=== PATIENT | male | born 1945 | race Caucasian/White ===

== ENCOUNTER 2017-01-04 11:26 | Inpatient (IN) ==
--- NOTE | 2017-01-04 11:34 | Emergency Department Note ---
Disposition Clinical Impression: Uncontrolled diabetes mellitus, Frail elderly, Weakness, Atrial fibrillation, CAROLYN (acute kidney injury), Dehydration, History of Coumadin therapy, Elevated troponin Disposition: Admitted As Inpatient General Adult HPI - General Chief complaint: ED General Medical Stated complaint: weakness Time Seen by Provider: 01/04/17 11:34 Source: patient, family Limitations: no limitations - History of Present Illness HPI Narrative: 71-year-old male reports emergency department with concerns for generalized weakness. He has been feeling weak for about 7 days. He did not want to come to the hospital but his female companions encouraged him to come in today. The patient denies syncope. There is no history of chest pain or shortness of breath. He has had a slight cough and a mild headache. No neck stiffness rash or fever. No leg swelling or pain or coughing up blood. There is no history of acute back pain. No abdominal pain. No bloody stools. The patient states he has a history of diabetes but was taken off his medication recently because his sugar had normalized. The patient used to take diabetic medicine by mouth. He has no history of insulin requirement. The patient is anticoagulated, he has a history of atrial fibrillation. There is no history of bleeding of any sort. No weakness or numbness of the arms or legs, no unilateral arm or leg weakness. No slurred speech or confusion. The patient feels generally weak and has no other acute complaints. Pain Scale: 0 - Related Data Home Medications Medication Instructions Recorded Confirmed Aspirin 81 mg PO DAILY 03/07/15 01/04/17 Clopidogrel [Plavix] 75 mg PO DAILY 03/07/15 01/04/17 GlipiZIDE [Glucotrol] 5 mg PO BID 03/07/15 01/04/17 Losartan/Hydrochlorothiazide 1 tab PO DAILY 03/07/15 01/04/17 [Hyzaar 100-25 Tablet] Metoprolol [Lopressor] 50 mg PO BID 03/07/15 01/04/17 Potassium Chloride 20 meq PO QAM 03/07/15 01/04/17 Terazosin [Hytrin] 5 mg PO HS 03/07/15 01/04/17 amLODIPine [Norvasc] 5 mg PO DAILY 03/07/15 01/04/17 Allopurinol [Zyloprim 300 MG] 300 mg PO DAILY 01/04/17 01/04/17 Digoxin [Lanoxin] 0.125 mg PO DAILY 01/04/17 01/04/17 Pravastatin Sodium [Pravachol] 40 mg PO HS 01/04/17 01/04/17 Warfarin [Coumadin] 2.5 mg PO MOFR 01/04/17 01/04/17 Warfarin [Coumadin] 5 mg PO SUTUWETHSA 01/04/17 01/04/17 Allergies Allergy/AdvReac Type Severity Reaction Status Date / Time No Known Allergies Allergy Verified 01/04/17 14:57 All systems ED: reviewed and negative except as stated. Past Medical History - Past Medical History Medical history: Reports: diabetes, other Psychiatric history: Reports: no psych history - Social History Smoking Status: Former smoker Smokeless Tobacco Status: No Alcohol use: Reports: none Drug use: Reports: none Physical Exam - General Limitations: no limitations General appearance: alert, in no apparent distress - Head Head exam: atraumatic, normocephalic, normal inspection - Eye Eye exam: Present: normal appearance, PERRL, EOMI. Absent: scleral icterus, conjunctival injection, miosis, mydriasis - ENT ENT exam: normal exam, normal oropharynx, mucous membranes moist, TM's normal bilaterally, normal external ear exam - Neck Neck exam: Present: normal inspection, full ROM, trachea midline. Absent: meningismus - Chest Chest inspection: Present: symmetric chest wall rise. Absent: tenderness - Respiratory Respiratory exam: Present: normal lung sounds bilaterally. Absent: respiratory distress, wheezes, stridor, accessory muscle use, prolonged expiratory phase - Cardiovascular Cardiovascular exam: Present: irregular rhythm - Abdominal Exam Abdominal exam: Present: soft, Non-Tender, normal bowel sounds. Absent: tenderness, distention, guarding, rebound, rigidity, pulsatile mass - Extremities Exam Extremities exam: Present: normal inspection, full ROM, normal capillary refill. Absent: tenderness, pedal edema, joint swelling, calf tenderness - Expanded Lower Extremity Exam Lower leg exam: Absent: Homans' sign Neurovascular/Tendon exam: Present: normal capillary refill. Absent: pulse deficit, motor deficit, sensory deficit, tendon deficit, extremity cold to touch , pallor - Back Exam Back exam: Present: normal inspection, full ROM. Absent: tenderness, CVA tenderness (R), CVA tenderness (L), vertebral tenderness - Neurological Exam Neurological exam: Present: alert, oriented X3, CN II-XII intact. Absent: motor sensory deficit - Psychiatric Psychiatric exam: Present: normal affect, normal mood - Skin Skin exam: Present: warm, dry, intact, normal color. Absent: rash, cyanosis, diaphoresis, erythema, pallor, mottled Course - Reevaluation(s) Reevaluation #1: Glucose recheck 512 Vital Signs Temperature 97.8 F 01/04/17 11:31 Pulse Rate 74 01/04/17 11:31 Respiratory Rate 18 01/04/17 11:31 Blood Pressure 120/73 01/04/17 11:31 O2 Sat by Pulse Oximetry 97 01/04/17 11:31 Temperature 97.8 F 01/04/17 11:31 Pulse Rate 73 01/04/17 13:32 Respiratory Rate 16 01/04/17 13:32 Blood Pressure 125/82 01/04/17 13:32 O2 Sat by Pulse Oximetry 95 01/04/17 13:32 Oxygen Delivery Oxygen Delivery Room Air Medical Decision Making - MDM Narrative Medical decision making narrative: The patient has been generally weak, the family noticed that he was not acting himself and thought he should come to the ED so he was brought in. The patient has recently discontinued his diabetic medication. His blood sugar is significantly elevated at 700 range, he appears to have an element of dehydration and acute kidney injury. There is no evidence of acute neurologic defect via radiographic studies and clinical exam. He is not a spearing to chest pain but does have a history of atrial fibrillation and is on Coumadin. His troponin is slightly elevated. Aspirin is given. 2 L of IV fluid were given 500 mL maintenance, 10 units of insulin subcutaneous that an insulin drip were started. No evidence of ness infection. He does have an elevated lactate probably metabolic in origin versus infectious. His urine does not show ketones. Blood cultures were sent. I discussed the case with the hospitalist on-call who has accepted the patient to their care. The patient is currently stable pending admission. - Lab Data Lab results reviewed: Yes I reviewed the patient's lab results. Result diagrams: 01/04/17 11:55 01/04/17 11:55 Lab Results 01/04/17 01/04/17 01/04/17 Range/Units 11:55 11:55 11:55 WBC 8.9 (4.3-11.1) K/mcL RBC 5.20 (4.19-5.50) M/mcL Hgb 15.1 (12.9-16.9) g/dL Hct 45.0 (37.5-50.1) % MCV 86.5 (83.0-100.0) fL MCH 29.0 (28.0-33.3) pg MCHC 33.6 (31.6-35.5) g/dL RDW 14.0 (11.5-14.5) % Plt Count 188 (140-400) K/mcL MPV 11.0 (9.4-12.4) fL Immature Gran % 1.1 (0-4) % Seg Neutrophils % 74.5 % Lymphocytes % 16.0 % Monocytes % 5.5 % Eosinophils % 2.2 % Basophils % 0.7 % Neutrophils # 6.6 (1.6-8.9) K/mcL Lymphocytes # 1.4 (0.6-4.6) K/mcL Monocytes # 0.5 (0.0-1.3) K/mcL Eosinophils # 0.2 (0.0-0.6) K/mcL Basophils # 0.1 (0.0-0.2) K/mcL PT 28.0 H (9.4-12.1) Seconds INR 2.5 Sodium 126 L (136-145) mEq/L Potassium 4.7 H (3.5-4.5) mEq/L Chloride 90 L (98-109) mEq/L Carbon Dioxide 22 (19-29) mEq/L BUN 59 H (8-26) mg/dL Creatinine 2.64 H (0.72-1.25) mg/dL Est GFR ( Amer) 29 L (> 60) Est GFR (Non-Af Amer) 24 L (> 60) BUN/Creatinine Ratio 22 (6-26) Glucose 742 H* (70-99) mg/dL Calculated Osmolality 314 H (280-300) Lactic Acid (0.5-2.2) mmol/L Calcium 10.2 (8.6-10.8) mg/dL Phosphorus 4.3 (2.3-4.7) mg/dL Magnesium 2.2 (1.6-2.6) mg/dL Troponin I (0-0.03) ng/mL C-Reactive Protein (Less than 5) mg/L Urine Color (Yellow) Urine Clarity (Clear) Urine pH (5.0-8.0) pH Units Ur Specific [place] (1.010-1.025) Urine Protein (Neg-Trace) mg/dL Urine Glucose (UA) (Normal) mg/dL Urine Ketones (Negative) mg/dL Urine Blood (Negative) Urine Nitrite (Negative) Urine Bilirubin (Negative) Urine Urobilinogen (Normal) mg/dL Ur Leukocyte Esterase (Negative) Ur Culture Indicated? (NO) 01/04/17 01/04/17 01/04/17 Range/Units 11:55 11:55 11:55 WBC (4.3-11.1) K/mcL RBC (4.19-5.50) M/mcL Hgb (12.9-16.9) g/dL Hct (37.5-50.1) % MCV (83.0-100.0) fL MCH (28.0-33.3) pg MCHC (31.6-35.5) g/dL RDW (11.5-14.5) % Plt Count (140-400) K/mcL MPV (9.4-12.4) fL Immature Gran % (0-4) % Seg Neutrophils % % Lymphocytes % % Monocytes % % Eosinophils % % Basophils % % Neutrophils # (1.6-8.9) K/mcL Lymphocytes # (0.6-4.6) K/mcL Monocytes # (0.0-1.3) K/mcL Eosinophils # (0.0-0.6) K/mcL Basophils # (0.0-0.2) K/mcL PT (9.4-12.1) Seconds INR Sodium (136-145) mEq/L Potassium (3.5-4.5) mEq/L Chloride (98-109) mEq/L Carbon Dioxide (19-29) mEq/L BUN (8-26) mg/dL Creatinine (0.72-1.25) mg/dL Est GFR ( Amer) (> 60) Est GFR (Non-Af Amer) (> 60) BUN/Creatinine Ratio (6-26) Glucose (70-99) mg/dL Calculated Osmolality (280-300) Lactic Acid 3.0 H (0.5-2.2) mmol/L Calcium (8.6-10.8) mg/dL Phosphorus (2.3-4.7) mg/dL Magnesium (1.6-2.6) mg/dL Troponin I 0.04 H* (0-0.03) ng/mL C-Reactive Protein 8 H (Less than 5) mg/L Urine Color (Yellow) Urine Clarity (Clear) Urine pH (5.0-8.0) pH Units Ur Specific [place] (1.010-1.025) Urine Protein (Neg-Trace) mg/dL Urine Glucose (UA) (Normal) mg/dL Urine Ketones (Negative) mg/dL Urine Blood (Negative) Urine Nitrite (Negative) Urine Bilirubin (Negative) Urine Urobilinogen (Normal) mg/dL Ur Leukocyte Esterase (Negative) Ur Culture Indicated? (NO) 01/04/17 Range/Units 12:07 WBC (4.3-11.1) K/mcL RBC (4.19-5.50) M/mcL Hgb (12.9-16.9) g/dL Hct (37.5-50.1) % MCV (83.0-100.0) fL MCH (28.0-33.3) pg MCHC (31.6-35.5) g/dL RDW (11.5-14.5) % Plt Count (140-400) K/mcL MPV (9.4-12.4) fL Immature Gran % (0-4) % Seg Neutrophils % % Lymphocytes % % Monocytes % % Eosinophils % % Basophils % % Neutrophils # (1.6-8.9) K/mcL Lymphocytes # (0.6-4.6) K/mcL Monocytes # (0.0-1.3) K/mcL Eosinophils # (0.0-0.6) K/mcL Basophils # (0.0-0.2) K/mcL PT (9.4-12.1) Seconds INR Sodium (136-145) mEq/L Potassium (3.5-4.5) mEq/L Chloride (98-109) mEq/L Carbon Dioxide (19-29) mEq/L BUN (8-26) mg/dL Creatinine (0.72-1.25) mg/dL Est GFR ( Amer) (> 60) Est GFR (Non-Af Amer) (> 60) BUN/Creatinine Ratio (6-26) Glucose (70-99) mg/dL Calculated Osmolality (280-300) Lactic Acid (0.5-2.2) mmol/L Calcium (8.6-10.8) mg/dL Phosphorus (2.3-4.7) mg/dL Magnesium (1.6-2.6) mg/dL Troponin I (0-0.03) ng/mL C-Reactive Protein (Less than 5) mg/L Urine Color Yellow (Yellow) Urine Clarity Clear (Clear) Urine pH 5.5 (5.0-8.0) pH Units Ur Specific [place] > 1.030 H (1.010-1.025) Urine Protein Negative (Neg-Trace) mg/dL Urine Glucose (UA) >=1000 H (Normal) mg/dL Urine Ketones Negative (Negative) mg/dL Urine Blood Negative (Negative) Urine Nitrite Negative (Negative) Urine Bilirubin Negative (Negative) Urine Urobilinogen Normal (Normal) mg/dL Ur Leukocyte Esterase Negative (Negative) Ur Culture Indicated? NO (NO) - Radiology Data Radiology results reviewed: Yes I reviewed the patient's radiology results.
[2017-01-04 12:06] LABS: Basophils # 0.1 K/mcL (0.0-0.2); Basophils % 0.7 %; Eosinophils # 0.2 K/mcL (0.0-0.6); Eosinophils % 2.2 %; Hemoglobin 15.1 g/dL (12.9-16.9); Immature Granulocytes % 1.1 % (0-4); Lymphocytes # 1.4 K/mcL (0.6-4.6); Mean Corpuscular HGB Conc 33.6 g/dL (31.6-35.5); Mean Corpuscular Volume 86.5 fL (83.0-100.0); Monocytes # 0.5 K/mcL (0.0-1.3); Monocytes % 5.5 %; Neutrophils # 6.6 K/mcL (1.6-8.9); Platelet Count 188 K/mcL (140-400); Segmented Neutrophils % 74.5 %
[2017-01-04 12:11] LABS: INR 2.5
[2017-01-04 12:19] LABS: Bilirubin,Urine Negative (Negative); Blood,Urine Negative (Negative); Clarity,Urine Clear (Clear); Color,Urine Yellow (Yellow); Glucose,Urine (UA) >=1000 mg/dL (Normal); Ketones,Urine Negative (Negative); Leukocyte Esterase,Urine Negative (Negative); Nitrite,Urine Negative (Negative); PH,Urine 5.5 pH Units (5.0-8.0); Protein,Urine Negative (Neg-Trace); Specific Gravity,Urine > 1.030 (1.010-1.025); Urobilinogen,Urine Normal (Normal)
[2017-01-04 12:20] LABS: Calcium 10.2 mg/dL (8.6-10.8); Magnesium 2.2 mg/dL (1.6-2.6); Phosphorous 4.3 mg/dL (2.3-4.7); Potassium 4.7 mEq/L (3.5-4.5)
[2017-01-04] MEDS ORDERED: 0.9 % Sodium Chloride 1,000 ML IVC ONE (12:31)
[2017-01-04] MEDS ORDERED: Insulin Regular, Human 100 UNIT/ML SQ ONE (12:39)
[2017-01-04] MEDS ORDERED: Aspirin 325 MG TABLET PO ONE (12:45)
[2017-01-04] MEDS: 0.9 % Sodium Chloride 1,000 ML IVC SCH ×8 (13:27→21:58)
[2017-01-04] MEDS ORDERED: Insulin Human Regular 100 UNIT in 0.9 % Sodium Chloride 100 ML IVC SCH ×3 (15:45→19:00)
[2017-01-04 17:52] LABS: VBG HCO3 23.7 mEq/L (21-27); VBG PH 7.37 pH Units (7.32-7.42)
[2017-01-04] MEDS ORDERED: Warfarin perPT PO PRN (18:00)
[2017-01-04 18:04] LABS: Calcium 9.3 mg/dL (8.6-10.8); Potassium 4.2 mEq/L (3.5-4.5)
--- NOTE | 2017-01-04 18:24 | Internal Med History&Physical ---
Date of Encounter: 01/04/17 Time of Encounter: 18:16 Assessment and Plan (1) Hyperglycemic hyperosmolar nonketotic coma Current visit: Yes Status: Acute Patient appeared more weak and lethargic to his daughter, his blood glucose was 742 on presentation. His serum osmolality was 314 on presentation. Altogether this supports the diagnosis of hyperglycemic hyperosmolar nonketotic coma. We will treat him with insulin drip per protocol. Check blood glucose every 1 hour. Replete fluids and electrolytes. Fall precaution. High risk for delirium due to profound metabolic abnormalities. We will start a diabetic diet. We will consult clinical unit educator. He has type 2 diabetes and the plan is to discharge him home on oral antidiabetic medication. (2) Anticoagulated on Coumadin Current visit: Yes Status: Acute Continue anticoagulation with warfarin. (3) Chronic heart failure Current visit: Yes Status: Acute There is no echocardiogram in our records. It is unclear if he has systolic or diastolic dysfunction or both. At this time it appears to be compensated as the patient is dehydrated. We will monitor her clinically closely while providing gentle IV fluid hydration. Will obtain echocardiogram. Qualifiers: Heart failure type: unspecified heart failure type Qualified Code(s): I50.9 - Heart failure, unspecified (4) Chronic atrial fibrillation Current visit: Yes Status: Acute Continue rate control with metoprolol. (5) CAROLYN (acute kidney injury) Current visit: Yes Status: Acute Hold lisinopril and I HCTZ. Avoid nephrotoxins. We will provide IV fluids. Monitor BUN and creatinine. He appears to have chronic kidney disease as his creatinine and September 2015 was 1.52. (6) Dehydration Current visit: Yes Status: Acute IV fluid hydration. Encourage oral fluids. Monitor hemodynamically for fluid overload given the patient's history of chronic heart failure. (7) DVT prophylaxis Current visit: Yes Status: Acute He is fully anticoagulated on Coumadin. Internal Medicine - H&P: HPI Chief complaint: Generalized weakness Admitted From: Emergency Dept Plans for Post Hospital Care: Home History of present illness: Mr. Funk is a 71 year old male with past medical history significant for coronary artery disease status post stent placement, chronic atrial fibrillation and diabetes who presented to the hospital for evaluation of generalized weakness. He states that he is to take oral medications for diabetes but a few months ago his primary care physician took him off that because he says that his glucose was well-controlled. For the last 1 week he had progressive generalized weakness associated with increased thirst and increased urination. Denies fevers chills nausea vomiting diarrhea. Does report decreased appetite. Her course has been progressive, denies any aggravating or alleviating factors. A 10 point review of systems was positive for leg swelling, dyspnea on exertion secondary to heart failure. Otherwise negative. Family history was negative for premature coronary artery disease in both parents. His parents lived well into their 70s. Past Med Surg Social Fam HX - Past Medical History Medical history: diabetes, other Psychiatric history: no psych history - Social History Smoking Status: Former smoker Smokeless Tobacco Status: No Alcohol use: none Drug use: none Internal Medicine - H&P: Meds Aspirin 81 mg PO DAILY 03/07/15 [History] Clopidogrel [Plavix] 75 mg PO DAILY 03/07/15 [History] GlipiZIDE [Glucotrol] 5 mg PO BID 03/07/15 [History] Losartan/Hydrochlorothiazide [Hyzaar 100-25 Tablet] 1 tab PO DAILY 03/07/15 [ History] Metoprolol [Lopressor] 50 mg PO BID 03/07/15 [History] Potassium Chloride 20 meq PO QAM 03/07/15 [History] Terazosin [Hytrin] 5 mg PO HS 03/07/15 [History] amLODIPine [Norvasc] 5 mg PO DAILY 03/07/15 [History] Allopurinol [Zyloprim 300 MG] 300 mg PO DAILY 01/04/17 [History] Digoxin [Lanoxin] 0.125 mg PO DAILY 01/04/17 [History] Pravastatin Sodium [Pravachol] 40 mg PO HS 01/04/17 [History] Warfarin [Coumadin] 2.5 mg PO MOFR 01/04/17 [History] Warfarin [Coumadin] 5 mg PO SUTUWETHSA 01/04/17 [History] Allergies No Known Allergies Allergy (Verified 01/04/17 14:57) All Systems PM: A 10-system review of systems was performed and is negative for pertinent findings except as documented above in the HPI. - Constitutional Vitals: Temp Pulse Resp BP Pulse Ox 97.4 F L 63 15 129/96 96 01/04/17 16:57 01/04/17 16:57 01/04/17 16:57 01/04/17 16:57 01/04/17 16:59 General appearance: Present: A&O X 3 - Eye Eye exam: Present: PERRL, conjuntiva pink, sclera anicteric Pupils: Present: PERRL - Respiratory Respiratory exam: Present: CTAB. Absent: accessory muscle use, rales, rhonchi, wheezes - Cardiovascular Cardiovascular exam: Present: irregular rhythm, +S1, +S2. Absent: diastolic murmur, gallop, rubs, systolic murmur - GI/Abdominal GI/Abdominal exam: Present: normal bowel sounds, soft, no peritoneal signs. Absent: distended, tenderness - Extremities Exam Extremities exam: Present: warm, radial pulses palpable and symetrical. Absent : calf tenderness, cyanotic, pedal edema - Neurological Exam Neurological exam: Present: CN II-XII intact, oriented X3, no focal deficits. Absent: pronater drift, facial droop, speech deficit - Skin Skin exam: Present: dry, intact Internal Med - H&P Results - Labs CBC & Chem 7: 01/04/17 11:55 01/04/17 17:44 Labs: BMP 01/04/17 17:44 Sodium 133 L D Potassium 4.2 Chloride 102 Carbon Dioxide 20 BUN 55 H Creatinine 2.16 H Glucose 422 H Calcium 9.3 Cardiac Enzymes 01/04/17 Range/Units 16:14 Troponin I 0.03 (0-0.03) ng/mL - ABG Interpretation ABG results: 01/04/17 17:44 VBG pH 7.37 VBG pCO2 41 VBG pO2 46 H VBG HCO3 23.7 - EKG Data -: EKG Interpreted by Myself (A. fib [address] and T wave changes, unchanged from 05/04)
[2017-01-04] MEDS ORDERED: *HR* Dextrose 50 % in Water (Syg) 50 ML SYRINGE IVP PRN ×2 (18:31→18:47)
[2017-01-04] MEDS ORDERED: *HR* HYDROcodone/Acet 5/325 mg TABLET PO PRN (18:41)
[2017-01-04] MEDS ORDERED: Ondansetron 4 MG/2 ML VIAL IVP PRN (18:41)
[2017-01-04] MEDS ORDERED: Acetaminophen 325 MG TABLET PO PRN (18:41)
[2017-01-04] MEDS: *HR* Warfarin 5 MG TABLET PO SCH (21:01)
[2017-01-05 05:40] LABS: Basophils # 0.1 K/mcL (0.0-0.2); Basophils % 0.6 %; Eosinophils # 0.3 K/mcL (0.0-0.6); Eosinophils % 3.3 %; Hematocrit 38.5 % (37.5-50.1); Hemoglobin 12.7 g/dL (12.9-16.9); Immature Granulocytes % 1.1 % (0-4); Lymphocytes # 2.9 K/mcL (0.6-4.6); Lymphocytes % 30.1 %; Mean Corpuscular Hemoglobin 28.9 pg (28.0-33.3); Mean Corpuscular Volume 87.5 fL (83.0-100.0); Mean Platelet Volume 10.7 fL (9.4-12.4); Monocytes # 0.6 K/mcL (0.0-1.3); Monocytes % 6.4 %; Neutrophils # 5.5 K/mcL (1.6-8.9); Platelet Count 166 K/mcL (140-400); Red Cell Distribution Width 13.9 % (11.5-14.5); Segmented Neutrophils % 58.5 %
[2017-01-05 05:42] LABS: INR 2.9; Prothrombin Time 32.7 Seconds (9.4-12.1)
[2017-01-05 05:51] LABS: Estimated Average Glucose > 355 mg/dl; Hemoglobin A1C >= 14.1 %
[2017-01-05 05:55] LABS: Calcium 8.8 mg/dL (8.6-10.8); Magnesium 1.8 mg/dL (1.6-2.6); Phosphorous 2.9 mg/dL (2.3-4.7); Potassium 3.6 mEq/L (3.5-4.5)
[2017-01-05] MEDS ORDERED: Dextrose Gel 15 GM PO PRN ×2 (08:23)
[2017-01-05] MEDS ORDERED: D5% in Water 1,000 ML IVC PRN (08:23)
[2017-01-05] MEDS ORDERED: *HR* Dextrose 50 % in Water (Syg) 50 ML SYRINGE IVP PRN (08:23)
--- NOTE | 2017-01-05 08:33 | Internal Med Progress Note ---
Addendum entered and electronically signed by Kavon Newsome DO 01/05/17 13:44: Of note: patient appears to have acute kidney injury on chronic kidney disease stage 3 with a baseline eGFR around 40. Original Note: <Kavon Newsome - Last Filed: 01/05/17 09:36> Date of Encounter: 01/05/17 Time of Encounter: 08:32 - Assessment and plan (1) Hyperglycemia without ketosis Current Visit: Yes Status: Acute Assessment and plan: Blood sugar much improved this morning after being on the insulin drip overnight. Blood sugars have been around 150 on night. Patient will be transitioned to a diabetic diet and subcutaneous insulin with 15 units of basal insulin daily and 5 units of preprandial insulin with sliding scale coverage. We will continue to monitor. Patient is only on oral hyperglycemic agents at home but his A1c is greater than 14.1, patient will likely require insulin at discharge. We will educate. (2) CAROLYN (acute kidney injury) Current Visit: Yes Status: Acute Assessment and plan: On chronic. Creatinine was 2.16 on presentation, baseline appears to be 1.5- 1.7. Likely related to dehydration in the setting of severe hyperglycemia. Creatinine is 1.6 this morning. Patient has good urine output, we will continue to monitor creatinine. (3) Chronic heart failure Current Visit: Yes Status: Acute Assessment and plan: Patient reports history of heart failure however we have no record of echocardiogram in our system. Does not appear to be in acute exacerbation. Will DC fluids, echo pending. Qualifiers: Heart failure type: unspecified heart failure type Qualified Code(s): I50.9 - Heart failure, unspecified (4) Chronic atrial fibrillation Current Visit: Yes Status: Acute Assessment and plan: Rate controlled. Sigmoid ablated on Coumadin with an INR of 2.9. Continue Coumadin and continue to monitor INR. (5) DVT prophylaxis Current Visit: Yes Status: Acute Assessment and plan: Patient is currently anticoagulated on Coumadin - Subjective Interval history: Patient seen and examined at bedside. He states he feels better today. He reports feeling less weak than he was prior to admission. He states he is hungry at this time. - Constitutional Vitals: Temp Pulse Resp BP Pulse Ox 97.7 F 63 16 102/85 97 01/05/17 06:49 01/05/17 06:49 01/05/17 06:49 01/05/17 06:49 01/05/17 06:49 General appearance: Present: A&O X 3 - Respiratory Respiratory exam: Present: CTAB. Absent: rales, rhonchi, wheezes - Cardiovascular Cardiovascular exam: Present: irregular rhythm. Absent: gallop, rubs, systolic murmur, tachycardia - GI/Abdominal GI/Abdominal exam: Present: normal bowel sounds, soft. Absent: distended, tenderness - Extremities Exam Extremities exam: Present: warm. Absent: pedal edema, tenderness Internal Medicine: Result - Labs CBC & Chem 7: 01/05/17 04:54 01/05/17 04:54 Labs: Short CBC 01/05/17 Range/Units 04:54 WBC 9.5 (4.3-11.1) K/mcL Hgb 12.7 L D (12.9-16.9) g/dL Hct 38.5 (37.5-50.1) % Plt Count 166 (140-400) K/mcL Neutrophils # 5.5 (1.6-8.9) K/mcL BMP 01/05/17 04:54 Sodium 137 Potassium 3.6 Chloride 108 Carbon Dioxide 21 BUN 44 H D Creatinine 1.65 H Glucose 153 H Calcium 8.8 - ABG Interpretation ABG results: PT/INR, D-dimer PT 32.7 Seconds (9.4-12.1) H 01/05/17 04:54 Consult Discharge Plan - Plan Referrals: Newton Cruz MD [Primary Care Provider] - <Candace Gonzalezgonzaloantonia - Last Filed: 01/05/17 14:21> Date of Encounter: 01/05/17 - Constitutional Vitals: Temp Pulse Resp BP Pulse Ox 98.1 F 70 16 114/63 95 01/05/17 12:06 01/05/17 12:06 01/05/17 12:06 01/05/17 12:06 01/05/17 12:06 Internal Medicine: Result - Labs CBC & Chem 7: 01/05/17 04:54 01/05/17 04:54 Labs: Short CBC 01/05/17 Range/Units 04:54 WBC 9.5 (4.3-11.1) K/mcL Hgb 12.7 L D (12.9-16.9) g/dL Hct 38.5 (37.5-50.1) % Plt Count 166 (140-400) K/mcL Neutrophils # 5.5 (1.6-8.9) K/mcL BMP 01/05/17 04:54 Sodium 137 Potassium 3.6 Chloride 108 Carbon Dioxide 21 BUN 44 H D Creatinine 1.65 H Glucose 153 H Calcium 8.8 - ABG Interpretation ABG results: PT/INR, D-dimer PT 32.7 Seconds (9.4-12.1) H 01/05/17 04:54 - Attending Attestation I saw and examined pt. I have discussed with Resident Dr Gorman regarding pt's management plan. I agree with the documentation. Pt feels fine, denies nausea or Abd pain. Mentally clear. Glu is well controlled now. Pt is not compliant to his med, HbA1C over 14. Pt was educated bedside. Will cont close monitoring. PT/OT evaluation
[2017-01-05] MEDS: Aspirin 81 MG TAB.CHEW PO SCH (09:19)
[2017-01-05] MEDS: amLODIPine 5 MG TABLET PO SCH (09:19)
[2017-01-05] MEDS: 0.9 % Sodium Chloride 1,000 ML IVC SCH (09:20)
[2017-01-05] MEDS: Insulin LISPRO 300 UNITS/3 ML VIAL SQ SCH ×5 (09:21→17:20)
[2017-01-05] MEDS: Insulin DETEMIR 100 UNIT/ML X5UNITS SQ SCH (09:36)
--- NOTE | 2017-01-05 17:49 | Electrocardiograph Report ---
[place] [id number] Test Date: 2017-01-04 Pat Name: Dennis Funk Department: 102 Room: [facility] Gender: Weighter: Xiomy : 1945 Requested By: William Brunner Order Number: [id number] Reading MD: Oskar Anne MD Measurements Intervals [place] Rate: 64 P: [place]: 0 QRS: -18 QRSD: 101 T: -9 QT: 362 QTc: 372 Interpretive Statements ATRIAL FIBRILLATION Electronically Signed On 01-05-2017 17:48:24 EDT by Oskar Anne MD
[2017-01-05] MEDS ORDERED: *HR* Warfarin 2.5 MG TABLET PO SCH (18:00)
[2017-01-05] MEDS ORDERED: Insulin DETEMIR 100 UNIT/ML X5UNITS SQ SCH (21:00)
[2017-01-05] MEDS ORDERED: Insulin LISPRO 300 UNITS/3 ML VIAL SQ SCH (21:00)
[2017-01-06 06:18] LABS: Basophils # 0.1 K/mcL (0.0-0.2); Basophils % 0.8 %; Eosinophils # 0.3 K/mcL (0.0-0.6); Hematocrit 40.9 % (37.5-50.1); Hemoglobin 13.3 g/dL (12.9-16.9); Immature Granulocytes % 1.3 % (0-4); Lymphocytes % 35.1 %; Mean Corpuscular HGB Conc 32.5 g/dL (31.6-35.5); Mean Corpuscular Hemoglobin 29.1 pg (28.0-33.3); Mean Corpuscular Volume 89.5 fL (83.0-100.0); Mean Platelet Volume 10.5 fL (9.4-12.4); Monocytes # 0.5 K/mcL (0.0-1.3); Monocytes % 5.8 %; Neutrophils # 4.6 K/mcL (1.6-8.9); Platelet Count 170 K/mcL (140-400); Red Blood Count 4.57 M/mcL (4.19-5.50); Red Cell Distribution Width 14.3 % (11.5-14.5)
[2017-01-06 06:19] LABS: INR 2.6
[2017-01-06 06:36] LABS: Calcium 9.4 mg/dL (8.6-10.8); Magnesium 1.8 mg/dL (1.6-2.6); Potassium 3.7 mEq/L (3.5-4.5)
[2017-01-06] MEDS: amLODIPine 5 MG TABLET PO SCH (08:40)
[2017-01-06] MEDS: Aspirin 81 MG TAB.CHEW PO SCH (08:40)
[2017-01-06] MEDS: Insulin DETEMIR 100 UNIT/ML X5UNITS SQ SCH (08:41)
[2017-01-06] MEDS: Insulin LISPRO 300 UNITS/3 ML VIAL SQ SCH ×6 (08:41→17:41)
--- NOTE | 2017-01-06 10:09 | Internal Med Progress Note ---
<JerodKavon - Last Filed: 01/06/17 10:07> Date of Encounter: 01/06/17 Time of Encounter: 10:07 - Assessment and plan (1) Hyperglycemia without ketosis Current Visit: Yes Status: Acute Assessment and plan: Resolved. Patient transitioned to subcutaneous insulin. Continue with subcutaneous insulin at discharge. (2) Type 2 diabetes mellitus Current Visit: Yes Status: Acute Assessment and plan: Patient's A1c was 6.2 on 10/15/2016 and has increased to greater than 14.1 in less than 3 months. The only medication change was metformin discontinued by his primary care physician and he is continuing only on glipizide. Patient also reports a significant weight loss in the last several months. Given the sudden hyperglycemia and weight loss we will scan the patient from neck to pelvis looking for occult malignancy. Qualifiers: Diabetes mellitus complication status: with hyperglycemia Diabetes mellitus termite treater insulin use: without skilled nursing use Qualified Code(s): E11.65 - Type 2 diabetes mellitus with hyperglycemia (3) CAROLYN (acute kidney injury) Current Visit: Yes Status: Acute Assessment and plan: On CK D stage III. Creatinine was 2.16 on presentation, baseline appears to be 1.5-1.7. Likely related to dehydration in the setting of severe hyperglycemia. Creatinine is 1.62 this morning. Patient has good urine output, we will continue to monitor creatinine. (4) Chronic heart failure Current Visit: Yes Status: Acute Assessment and plan: Heart failure with preserved ejection fraction. Echo shows a normal EF with indeterminant diastolic dysfunction. Does not appear to be in acute exacerbation. Qualifiers: Heart failure type: unspecified heart failure type Qualified Code(s): I50.9 - Heart failure, unspecified (5) Chronic atrial fibrillation Current Visit: Yes Status: Acute Assessment and plan: Rate controlled. Anticoagulated on Coumadin with an INR of 2.6. Continue Coumadin and continue to monitor INR. (6) DVT prophylaxis Current Visit: Yes Status: Acute Assessment and plan: Patient is currently anticoagulated on Coumadin - Subjective Interval history: Patient seen and examined at bedside. He states he feels much better today. He denies fever, chills, polyuria, polydipsia. - Constitutional Vitals: Temp Pulse Resp BP Pulse Ox 97.7 F 77 16 108/91 96 01/06/17 07:33 01/06/17 07:33 01/06/17 07:33 01/06/17 07:33 01/06/17 07:33 General appearance: Present: A&O X 3, no acute distress - Respiratory Respiratory exam: Present: CTAB. Absent: rales, rhonchi, wheezes - Cardiovascular Cardiovascular exam: Present: RRR. Absent: gallop, rubs, systolic murmur - GI/Abdominal GI/Abdominal exam: Present: normal bowel sounds, soft. Absent: distended, tenderness - Extremities Exam Extremities exam: Present: warm. Absent: pedal edema, tenderness - Other Additional findings: No palpable lymph nodes present Internal Medicine: Result - Labs CBC & Chem 7: 01/06/17 04:37 01/06/17 04:37 Labs: Short CBC 01/06/17 Range/Units 04:37 WBC 8.4 (4.3-11.1) K/mcL Hgb 13.3 (12.9-16.9) g/dL Hct 40.9 (37.5-50.1) % Plt Count 170 (140-400) K/mcL Neutrophils # 4.6 (1.6-8.9) K/mcL BMP 01/06/17 04:37 Sodium 137 Potassium 3.7 Chloride 107 Carbon Dioxide 20 BUN 36 H Creatinine 1.62 H Glucose 196 H Calcium 9.4 - ABG Interpretation ABG results: PT/INR, D-dimer PT 29.0 Seconds (9.4-12.1) H 01/06/17 04:37 Consult Discharge Plan - Plan Referrals: Newton Cruz MD [Primary Care Provider] - <Keith Vizcarra - Last Filed: 01/06/17 16:55> Date of Encounter: 01/06/17 - Constitutional Vitals: Temp Pulse Resp BP Pulse Ox 97.6 F 77 16 121/86 98 01/06/17 11:59 01/06/17 11:59 01/06/17 11:59 01/06/17 11:59 01/06/17 11:59 Internal Medicine: Result - Labs CBC & Chem 7: 01/06/17 04:37 01/06/17 04:37 Labs: Short CBC 01/06/17 Range/Units 04:37 WBC 8.4 (4.3-11.1) K/mcL Hgb 13.3 (12.9-16.9) g/dL Hct 40.9 (37.5-50.1) % Plt Count 170 (140-400) K/mcL Neutrophils # 4.6 (1.6-8.9) K/mcL BMP 01/06/17 04:37 Sodium 137 Potassium 3.7 Chloride 107 Carbon Dioxide 20 BUN 36 H Creatinine 1.62 H Glucose 196 H Calcium 9.4 - ABG Interpretation ABG results: PT/INR, D-dimer PT 29.0 Seconds (9.4-12.1) H 01/06/17 04:37 - Impressions Impressions Abdomen/Pelvis CT 01/06/17 09:30 IMPRESSION: 1. No definite evidence of malignancy in the chest, abdomen and pelvis. 2. Hepatic steatosis with a more focal area low density in the right inferior lobe. Finding is favored to represent more fatty infiltration with malignancy considered less likely. Given the patient's symptoms and concern for malignancy, a dedicated liver MRI with Gadavist is recommended. 3. Wall thickening of the bladder, nonspecific but likely related to chronic bladder outlet obstruction. 4. Nonobstructing bladder calculus measures 8 mm. 5. Mild emphysema. 6. Infrarenal abdominal aortic aneurysm measuring up to 3.3 cm. RECOMMENDATIONS: Managing Abdominal Aortic Aneurysms 3.0-3.4 cm: 3 year follow up Reference: Fam et al. The care of patients with an abdominal aortic aneurysm: The Society of Vascular Surgery practice guidelines. Journal of Vascular Surgery. Vol 50, Number 85. Fela et al. Managing Incidental Findings on Abdominal and Pelvic CT and MRI, Part 2: White Paper of the ACR Incidental Findings Committee II on Vascular Findings. J Am Dina Radiol 2013;10:789-794 D/ / 01/06/2017 11:36:32 Ana Cristina Del Castillo MD / britt Interpreting Provider: Ana Cristina Del Castillo MD Chest CT 01/06/17 09:30 IMPRESSION: 1. No definite evidence of malignancy in the chest, abdomen and pelvis. 2. Hepatic steatosis with a more focal area low density in the right inferior lobe. Finding is favored to represent more fatty infiltration with malignancy considered less likely. Given the patient's symptoms and concern for malignancy, a dedicated liver MRI with Gadavist is recommended. 3. Wall thickening of the bladder, nonspecific but likely related to chronic bladder outlet obstruction. 4. Nonobstructing bladder calculus measures 8 mm. 5. Mild emphysema. 6. Infrarenal abdominal aortic aneurysm measuring up to 3.3 cm. RECOMMENDATIONS: Managing Abdominal Aortic Aneurysms 3.0-3.4 cm: 3 year follow up Reference: Fam et al. The care of patients with an abdominal aortic aneurysm: The Society of Vascular Surgery practice guidelines. Journal of Vascular Surgery. Vol 50, Number 85. Fela et al. Managing Incidental Findings on Abdominal and Pelvic CT and MRI, Part 2: White Paper of the ACR Incidental Findings Committee II on Vascular Findings. J Am Dina Radiol 2013;10:789-794 D/ / 01/06/2017 11:36:32 Ana Cristina Del Castillo MD / britt Interpreting Provider: Ana Cristina Del Castillo MD Soft Tissue Neck CT 01/06/17 09:30 IMPRESSION: 1. No evidence of malignancy in the neck, given the limitations of the lack of IV contrast. 2. Atherosclerotic disease. 3. No cervical lymphadenopathy. D/ / 01/06/2017 11:26:42 Rober Slade MD / Meryl Vera Interpreting Provider: Rober Slade MD - Attending Attestation I examined this patient and my medical decision-making was reviewed with the COIL WINDING SUPERVISOR/PA/Advanced Practice Nurse/Resident Physician. I agree with the documented findings, disposition and treatment plan as described except to the extent set forth below.
[2017-01-06] MEDS ORDERED: Insulin LISPRO 300 UNITS/3 ML VIAL SQ SCH (13:26)
[2017-01-06] MEDS ORDERED: 0.9 % Sodium Chloride 500 ML IVC ONE (13:55)
[2017-01-06] MEDS ORDERED: 0.9 % Sodium Chloride 500 ML IVC SCH (16:45)
[2017-01-06] MEDS: *HR* Warfarin 5 MG TABLET PO SCH (17:40)
[2017-01-07 07:56] VITALS: BP 141/99
[2017-01-07] MEDS: amLODIPine 5 MG TABLET PO SCH (08:02)
[2017-01-07] MEDS: Aspirin 81 MG TAB.CHEW PO SCH (08:02)
[2017-01-07] MEDS: Insulin LISPRO 300 UNITS/3 ML VIAL SQ SCH ×2 (08:03)
[2017-01-07 08:04] LABS: Basophils # 0.1 K/mcL (0.0-0.2); Basophils % 0.8 %; Eosinophils # 0.2 K/mcL (0.0-0.6); Eosinophils % 2.8 %; Hematocrit 40.1 % (37.5-50.1); Immature Granulocytes % 1.2 % (0-4); Lymphocytes % 25.7 %; Mean Corpuscular HGB Conc 32.4 g/dL (31.6-35.5); Mean Corpuscular Volume 89.3 fL (83.0-100.0); Mean Platelet Volume 10.4 fL (9.4-12.4); Monocytes # 0.6 K/mcL (0.0-1.3); Monocytes % 7.9 %; Neutrophils # 4.8 K/mcL (1.6-8.9); Platelet Count 152 K/mcL (140-400); Red Blood Count 4.49 M/mcL (4.19-5.50); Red Cell Distribution Width 14.3 % (11.5-14.5); Segmented Neutrophils % 61.6 %
[2017-01-07 08:11] LABS: INR 2.4; Prothrombin Time 26.5 Seconds (9.4-12.1)
[2017-01-07 08:19] LABS: Calcium 9.4 mg/dL (8.6-10.8); Potassium 3.9 mEq/L (3.5-4.5)
--- NOTE | 2017-01-07 08:32 | Discharge Summary ---
<Kavon Newsome - Last Filed: 01/07/17 08:55> Date of Encounter: 01/07/17 Time of Encounter: 08:30 - Discharge Diagnosis (1) Hyperglycemia without ketosis Priority: Primary Status: Resolved (2) Type 2 diabetes mellitus Priority: Primary Status: Chronic Qualifiers: Diabetes mellitus complication status: with hyperglycemia Diabetes mellitus long term care phlebotomist insulin use: without long term care phlebotomist use Qualified Code(s): E11.65 - Type 2 diabetes mellitus with hyperglycemia (3) CAROLYN (acute kidney injury) Priority: Primary Status: Resolved (4) Chronic heart failure Priority: Secondary Status: Chronic Qualifiers: Heart failure type: unspecified heart failure type Qualified Code(s): I50.9 - Heart failure, unspecified (5) Chronic atrial fibrillation Priority: Secondary Status: Chronic (6) DVT prophylaxis Priority: Secondary Status: Acute - Discharge Medications Prescriptions: Alcohol Antiseptic Pads [Alcohol Pads] 1 each TP BID #60 med..pad Insulin NPH/REG 70/30 [HumuLIN 70/30 VIAL] 20 - 40 unit SQ BIDWM #6 vial Syring-Needl,Disp,Insul,0.3 ml [Insulin Syringe] 1 each MC BID #60 disp.syrin Home Medications: Aspirin 81 mg PO DAILY 03/07/15 [History] Clopidogrel [Plavix] 75 mg PO DAILY 03/07/15 [History] Losartan/Hydrochlorothiazide [Hyzaar 100-25 Tablet] 1 tab PO DAILY 03/07/15 [ History] Metoprolol [Lopressor] 50 mg PO BID 03/07/15 [History] Potassium Chloride 20 meq PO QAM 03/07/15 [History] Terazosin [Hytrin] 5 mg PO HS 03/07/15 [History] amLODIPine [Norvasc] 5 mg PO DAILY 03/07/15 [History] Allopurinol [Zyloprim 300 MG] 300 mg PO DAILY 01/04/17 [History] Digoxin [Lanoxin] 0.125 mg PO DAILY 01/04/17 [History] Pravastatin Sodium [Pravachol] 40 mg PO HS 01/04/17 [History] Warfarin [Coumadin] 2.5 mg PO MOFR 01/04/17 [History] Warfarin [Coumadin] 5 mg PO SUTUWETHSA 01/04/17 [History] Alcohol Antiseptic Pads [Alcohol Pads] 1 each TP BID #60 med..pad 01/07/17 [Rx] Insulin NPH/REG 70/30 [HumuLIN 70/30 VIAL] 20 - 40 unit SQ BIDWM #6 vial [Rx] Syring-Needl,Disp,Insul,0.3 ml [Insulin Syringe] 1 each MC BID #60 disp.syrin [Rx] Allergies/Adverse Reactions: Allergies No Known Allergies Allergy (Verified 01/04/17 14:57) Procedures/tests Complete & Pending: Procedures Performed prior 72 hours Category Date Time Status CT abd pelvis wo no iv no oral [CT] Routine Cat Scan 01/06/17 09:[address] chest wo con [CT] Routine Cat Scan 01/06/17 09:[address] soft tissue neck wo con [CT] Routine Cat Scan 01/06/17 09:30 Completed MR abdomen wo/w con [MR] Routine MRI 01/06/17 13:54 Completed EV echocardiogram Routine Y 01/05/17 18:53 Completed - Notes to Outpatient Provider Discussed with Dr. Cruz plan of care post discharge Date of admission: 01/04/17 18:41 Primary care physician: Newton Cruz MD Discharging clinician: Kavon Newsome Anticipated date of discharge: 01/07/17 - Patient Status Disposition: Home, Self-Care Condition: Fair Functional capacity at discharge: independent ambulation Overall status at discharge: patient is progressing back to baseline - Discharge Instructions Instructions: Insulin NPH/Regular (Injection), Diabetes Mellitus Type 2 in Adults (DC), Meal Planning with Diabetes Exchanges (DC), Meal Planning with Diabetes Exchanges (GEN) Follow Up With: Newton Curz MD [Primary Care Provider] - 01/09/17 11:30 am Additional Instructions: Please follow up with your primary care physician as scheduled. Please resume your home medications other than glipizide which she should discontinue. Please start insulin twice a day, 40 units in the morning and 20 units in the evening. Please check your blood sugars at least twice a day and record these and take them to your care physician appointment. Please follow a diabetic diet including low sugar and carbohydrates. Please return for any new or worsening symptoms. - Diet and Activity Activity: increase activity as tolerated Diet: diabetic diet Interval History: Patient seen and examined at bedside. Patient states that he feels pretty good today. He has no complaints at this time. He denies fever, chills, weakness, polyuria, polydipsia. Hospital course: Mr. Funk is a 71 year old male with history of chronic atrial fibrillation and type 2 diabetes initially presented with weakness. Patient stated that his weakness was progressive over 3 days to the point that he could not walk. He also reported significant polyuria and polydipsia. On arrival the patient's blood sugar was found to be 742. The patient was not in DKA. The patient was initiated on an insulin drip and sugars responded appropriately. Patient was then transitioned to subcutaneous basal bolus insulin regimen. Of note this is a significant change in the patient's course of his diabetes as his A1c at the end of September was 6.2 and has significantly jumped to greater than 14.1 and just 3 months. Patient also reported a 25 pound weight loss so given these symptoms we performed a scan of the patient's neck, chest, abdomen, pelvis due to concerns for occult malignancy. The CT of the abdomen did reveal a focal area within the liver that was thought to be fatty infiltration but malignancy could not be ruled out on a noncontrast CT therefore a abdominal MRI was performed which revealed fatty infiltration with no concerning focal findings. I discussed the patient with his primary care physician prior to discharge to agreed with our plan and will follow him up closely after discharge. Patient will be discharged home in stable condition. - Time Spent with Patient Total time spent providing and/or coordinating discharge services: Greater than 30 minutes - Constitutional Vitals: Temp Pulse Resp BP Pulse Ox 97.6 F 72 16 141/99 99 01/07/17 07:47 01/07/17 07:47 01/07/17 07:47 01/07/17 07:47 01/07/17 07:47 General appearance: Present: A&O X 3, pleasant, no acute distress - Respiratory Respiratory exam: Present: CTAB. Absent: rales, rhonchi, wheezes - Cardiovascular Cardiovascular exam: Present: irregular rhythm. Absent: gallop, rubs, systolic murmur, tachycardia - GI/Abdominal GI/Abdominal exam: Present: normal bowel sounds. Absent: distended, soft, tenderness - Extremities Exam Extremities exam: Present: warm. Absent: pedal edema, tenderness <Carmita,Keith P - Last Filed: 01/07/17 18:58> Date of Encounter: 01/07/17 Procedures/tests Complete & Pending: Procedures Performed prior 72 hours Category Date Time Status CT abd pelvis wo no iv no oral [CT] Routine Cat Scan 01/06/17 09:[address] chest wo con [CT] Routine Cat Scan 01/06/17 09:[address] soft tissue neck wo con [CT] Routine Cat Scan 01/06/17 09:30 Completed MR abdomen wo/w con [MR] Routine MRI 01/06/17 13:54 Completed EV echocardiogram Routine Y 01/05/17 18:53 Completed Date of admission: 01/04/17 18:41 Primary care physician: Newton Cruz MD Hospital course: Mr. Funk is a 71 year old male - Time Spent with Patient Total time spent providing and/or coordinating discharge services: - Constitutional Vitals: Temp Pulse Resp BP Pulse Ox 97.6 F 72 16 141/99 99 01/07/17 07:47 01/07/17 07:47 01/07/17 07:47 01/07/17 07:47 01/07/17 07:47 - Attending Attestation I examined this patient and my medical decision-making was reviewed with the EMERGENCY MANAGEMENT SYSTEM DIRECTOR/PA/Advanced Practice Nurse/Resident Physician. I agree with the documented findings, disposition and treatment plan as described except to the extent set forth below.
[2017-01-07] MEDS ORDERED: Insulin DETEMIR 100 UNIT/ML X5UNITS SQ SCH (09:00)
[2017-01-07] MEDS ORDERED: Aminoglycoside Consult 1 EACH MC ONE (11:59)
== END 2017-01-07 12:00 | disposition home or self-care (01) | DRG 638 ==
LOC: EMEROO 11:26 → 2NENU 11:26 → SUATTDRO 18:41
PROVIDERS: ADMIT Internal Medicine; ATTEND Internal Medicine